=== PATIENT | male | born 1945 | race Caucasian/White ===

== ENCOUNTER → 2016-10-15 | Outpatient (CLI) | payer MEDICARE, BC | LOC: GMAL 12:25 | PROVIDERS: ATTEND Family Medicine | DX: E55.9 Vitamin D deficiency, unspecified (principal) ==

== ENCOUNTER → 2017-04-14 | Outpatient (CLI) | payer MEDICARE, BC | END | disposition home or self-care (01) | LOC: GMAL 10:46 | PROVIDERS: ATTEND Family Medicine | DX: Z12.5 Encounter for screening for malignant neoplasm of prostate (principal); D51.3 Other dietary vitamin B12 deficiency anemia; R53.82 Chronic fatigue, unspecified | CPT/HCPCS: 82607; 84443; G0103 ==

== ENCOUNTER → 2017-10-20 | Outpatient (CLI) | payer MEDICARE, BC | END | disposition home or self-care (01) | LOC: GMAL 10:25 | PROVIDERS: ATTEND Family Medicine | DX: Z79.899 Other long term (current) drug therapy (principal); E55.9 Vitamin D deficiency, unspecified; R73.09 Other abnormal glucose ==

== ENCOUNTER 2018-03-04 17:42 | Emergency (ER) | payer MEDICARE ==
--- NOTE | 2018-03-04 18:10 | ED.PDOC ---
History of Present Illness - General Chief Complaint: Respiratory Problem Stated Complaint: shortness of breath, fever Time Seen by Provider: 03/04/18 18:09 Source: patient Exam Limitations: no limitations - History of Present Illness Initial Comments: Zen Angelo 72 y/o male with hx of COPD came to er stating had fever t-101.2 last night and occasional cough and this morning felt some chills with more sob.No chest pains,no N/V,no ill contact. Timing/Duration: yesterday Severity: moderate Possible Cause: occasional episodes Improving Factors: nothing Worsening Factors: nothing Associated Symptoms: fever/chills Respiratory Risk Factors: other - copd Allergies/Adverse Reactions: Allergies Codeine Allergy (Intermediate, Verified 12/26/12 10:32) Home Medications: Ambulatory Orders Omeprazole [Prilosec] 20 mg PO DAILY #0 02/23/13 Lisinopril & Hydrochlorothiazi 05/07/14 Ondansetron [Zofran Odt] 4 mg PO QID PRN #10 tab 05/07/14 Cefuroxime Axetil [Ceftin] 500 mg PO Q12H #14 tablet 03/04/18 Doxycycline Hyclate 100 mg PO BID #14 cap 03/04/18 predniSONE 20 mg PO DAILY #10 tab 03/04/18 Review of Systems - Review of Systems Constitutional: States: no symptoms reported EENTM: States: no symptoms reported Respiratory: States: see HPI Cardiology: States: no symptoms reported Gastrointestinal/Abdominal: States: no symptoms reported Genitourinary: States: no symptoms reported All other Systems: Reviewed and Negative, No Change from Baseline Past Medical History (General) - Patient Medical History Hx Seizures: No Hx Stroke: No Hx Asthma: No Hx of COPD: Yes Hx Cardiac Disorders: Yes Hx Congestive Heart Failure: No Hx Pacemaker: No Hx Hypertension: Yes Hx Diabetes: No Hx MRSA: No Surgical History: other - ankle left;neck - Social History Hx Tobacco Use: Yes Years Tobacco Use: 55 Cigarettes Packs Per Day: 10 Hx Chewing Tobacco Use: No Hx Alcohol Use: No Hx Substance Use: No Hx Physical Abuse: No Hx Emotional Abuse: No Family Medical History - Family History Mother Family History: Unknown Hx Cardiac Disease: Yes - dad and brother-mi Hx Family Cancer: Yes - lymphoma-brother Physical Exam - Physical Exam General Appearance: Alert, Comfortable Eye Exam: bilateral normal ENT Exam: normal ENT inspection, other - hard of hearing Neck: non-tender, full range of motion, supple, normal inspection, trachea midline Respiratory: no respiratory distress, no accessory muscle use, wheezing, other - speaks in full sentences Cardiovascular/Chest: normal peripheral pulses, regular rate, rhythm, no murmur Gastrointestinal/Abdominal: normal bowel sounds, non tender, soft Extremity: non-tender, no pedal edema, no calf tenderness Neurologic: alert, oriented x 3 Skin Exam: normal color, warm/dry Progress - Progress Progress: 03/04/18 19:43 Vital Signs 03/04/18 03/04/18 03/04/18 17:46 18:14 18:34 Temperature Pulse Rate 88 Pulse Rate [ 94 H left brachial] Respiratory 24 24 20 Rate Blood Pressure 120/74 [right brachial ] O2 Sat by Pulse 95 94 L Oximetry 03/04/18 19:00 Temperature 99.2 F Pulse Rate Pulse Rate [ 94 H left brachial] Respiratory 22 Rate Blood Pressure 128/62 [right brachial ] O2 Sat by Pulse 92 L Oximetry - Results/Orders Results/Orders: 03/04/18 18:09 BLOOD CULTURE Stat 03/04/18 18:15 EKG STAT 03/04/18 18:31 Azithromycin IV [Zithromax IV] 500 mg Sodium Chloride 0.9% 250Ml [NS 250ml] 250 ml IVPB ONCE 03/04/18 18:49 SPUTUM CULTURE Stat 03/04/18 19:12 CTA Chest [CT] Stat SVN/Updraft Therapy .PRN 03/04/18 19:13 SVN/Updraft Therapy .ONCE 03/05/18 09:00 [facility] Daily [facility] Daily Laboratory Results - last 24 hr 03/04/18 03/04/18 03/04/18 17:56 18:01 18:01 WBC 13.3 H RBC 5.07 Hgb 15.8 Hct 47.0 MCV 92.5 MCH 31.2 H MCHC 33.7 RDW 14.1 Plt Count 194 MPV 8.2 Absolute Neuts (auto) 11.00 H Absolute Lymphs (auto) 1.30 Absolute Monos (auto) 0.90 H Absolute Eos (auto) 0.10 Absolute Basos (auto) 0.00 Neutrophils % 82.4 H Lymphocytes % 9.6 L Monocytes % 7.1 Eosinophils % 0.7 L Basophils % 0.2 PT 12.6 H INR 1.090 PTT (SP) 30.7 D-Dimer, Quantitative Sodium 134 L Potassium 3.5 L Chloride 100 L Carbon Dioxide 26 Anion Gap 11.5 L BUN 21 H Creatinine 1.11 BUN/Creatinine Ratio 18.9 Random Glucose 93 Serum Osmolality 270.9 L Lactic Acid Calcium 8.6 Magnesium Total Bilirubin 0.8 AST 23 ALT 20 Alkaline Phosphatase 59 Creatine Kinase CK-MB (CK-2) CK-MB (CK-2) % Troponin I Serum Total Protein 6.6 Albumin 3.7 Globulin 2.9 Albumin/Globulin Ratio 1.3 03/04/18 03/04/18 03/04/18 18:01 18:22 18:22 WBC RBC Hgb Hct MCV MCH MCHC RDW Plt Count MPV Absolute Neuts (auto) Absolute Lymphs (auto) Absolute Monos (auto) Absolute Eos (auto) Absolute Basos (auto) Neutrophils % Lymphocytes % Monocytes % Eosinophils % Basophils % PT INR PTT (SP) D-Dimer, Quantitative 280 H* Sodium Potassium Chloride Carbon Dioxide Anion Gap BUN Creatinine BUN/Creatinine Ratio Random Glucose Serum Osmolality Lactic Acid 1.0 Calcium Magnesium 1.9 Total Bilirubin AST ALT Alkaline Phosphatase Creatine Kinase 129 CK-MB (CK-2) 2.5 CK-MB (CK-2) % Not Reportable Troponin I < 0.02 Serum Total Protein Albumin Globulin Albumin/Globulin Ratio - EKG/XRAY/CT XRAY: chest - right basilar patchy opacities-atelectasis or scarring CT Ordered: Yes - CTA-no PE ;poorly defined right basilar infiltrates/ radiologis see reprt Departure - Departure Clinical Impression: Dyspnea and respiratory abnormalities, COPD exacerbation, Positive D-dimer Time of Disposition: 20:54 Disposition: Discharge to Home or Self Care Condition: Fair Departure Forms: ED Discharge - Pt. Copy, Patient Portal Self Enrollment Instructions: DI for Chronic Obstructive Pulmonary Disease Referrals: Norberto Braga III, MD [Primary Care Provider] - 1-2 Weeks Prescriptions: Cefuroxime Axetil [Ceftin] 500 mg PO Q12H #14 tablet Doxycycline Hyclate 100 mg PO BID #14 cap predniSONE 20 mg PO DAILY #10 tab Home Medications: Ambulatory Orders Omeprazole [Prilosec] 20 mg PO DAILY #0 02/23/13 Lisinopril & Hydrochlorothiazi 05/07/14 Ondansetron [Zofran Odt] 4 mg PO QID PRN #10 tab 05/07/14 Cefuroxime Axetil [Ceftin] 500 mg PO Q12H #14 tablet 03/04/18 Doxycycline Hyclate 100 mg PO BID #14 cap 03/04/18 predniSONE 20 mg PO DAILY #10 tab 03/04/18 Additional Instructions: Continue with all home medications;Return to emergency room as needed
--- NOTE | 2018-03-04 18:17 | RAD ---
EXAM DESCRIPTION: Chest,1 View CLINICAL HISTORY:72 years Male, dyspnea Comparison: February 23, 2013 FINDINGS: Right basilar patchy opacities likely atelectasis or scarring. Infectious process not excluded.. No pleural effusion. No pneumothorax. Cardiac and mediastinal silhouette is unremarkable. No acute osseous abnormality. Soft tissues are unremarkable. Electronically signed by: Christopher Johnson MD 03/04/2018 6:16 PM CDT
[2018-03-04] MEDS ORDERED: methylPREDNISolone SODIUM SUC 125 MG/2 ML VIAL IV ONE (18:22)
[2018-03-04] MEDS ORDERED: IPRATROPIUM/ALBUTEROL 3 ML VIAL NEB ONE ×2 (18:22→19:12)
[2018-03-04] MEDS ORDERED: SODIUM CHLORIDE 0.9% 1000ML 1,000 ML IVS ONE (18:23)
[2018-03-04] MEDS ORDERED: AZITHROMYCIN IV 500 MG in SODIUM CHLORIDE 0.9% 250ML 250 ML IVPB ONE (18:31)
[2018-03-04] MEDS ORDERED: cefTRIAXone SODIUM 1 GM in SODIUM CHL 0.9% 50ML MIN-BAG+ 50 ML IVPB ONE (18:31)
[2018-03-04] MEDS ORDERED: SODIUM CHL 0.9% 50ML MIN-BAG+ 50 ML IVPB ONE (18:36)
[2018-03-04] MEDS ORDERED: cefTRIAXone SODIUM 1 GM VIAL ONE (18:36)
[2018-03-04] MEDS ORDERED: AZITHROMYCIN IV 500 MG VIAL IVPB ONE (19:10)
[2018-03-04] MEDS ORDERED: SODIUM CHLORIDE 0.9% 250ML 250 ML ONE (19:10)
--- NOTE | 2018-03-04 20:39 | CT ---
PROCEDURE: CTA Chest CLINICAL HISTORY: 72 years Male sob/elevated d-dimer COMPARISON: None. TECHNIQUE: Contiguous axial images were obtained through the chest during the infusion of IV contrast. Reformatted images obtained. MIP reformatted images obtained. This exam was performed according to our department optimization program which includes automated exposure control, adjustment of the mA and/or kv according to patient size and/or use of iterative reconstruction technique. FINDINGS: There is poorly defined consolidation in the right lung base. Scattered interstitial disease is seen in both lungs and there are medial left lung peripheral pulmonary bulla. Patient motion limits detail. No definite PE. The lungs are hyperinflated. There is a small right pleural effusion. No pneumothorax is seen. Heart size is normal. No evidence of aortic aneurysm. IMPRESSION: No definite evidence of pulmonary embolus. Electronically signed by: Osmel Tomas 03/04/2018 8:38 PM CDT
[2018-03-04 21:14] VITALS: BP 106/72; TEMP 98.3; O2SAT 94
== END 2018-03-04 21:14 | disposition home or self-care (01) ==
LOC: ER 17:42
DX: J44.1 Chronic obstructive pulmonary disease with (acute) exacerbation (principal); R79.89 Other specified abnormal findings of blood chemistry; I10 Essential (primary) hypertension; F17.210 Nicotine dependence, cigarettes, uncomplicated
CPT/HCPCS: 36415; 71045; 71275; 80053; 81001; 82550; 82553; 83605; 83735; 84484; 85025; 85379; 85610; 85730; 87040; 87070; 87205; 93005; 94640; J0456; J0696; J2930; J7030; J7050; J7620

== ENCOUNTER → 2018-04-12 | Outpatient (CLI) | payer MEDICARE | LOC: GMAL 10:37 | PROVIDERS: ATTEND Family Medicine | DX: Z12.5 Encounter for screening for malignant neoplasm of prostate (principal) ==

== ENCOUNTER → 2018-10-25 | Outpatient (CLI) | payer MEDICARE | LOC: GMAL 10:28 | PROVIDERS: ATTEND Family Medicine | DX: D51.3 Other dietary vitamin B12 deficiency anemia (principal); E55.9 Vitamin D deficiency, unspecified ==

== ENCOUNTER → 2019-10-24 | Outpatient (CLI) | payer MEDICARE | LOC: GMAL 10:30 | PROVIDERS: ATTEND Family Medicine | DX: Z12.5 Encounter for screening for malignant neoplasm of prostate (principal); R53.82 Chronic fatigue, unspecified; I10 Essential (primary) hypertension; E78.49 Other hyperlipidemia | CPT/HCPCS: 84443; G0103 ==